=== PATIENT | female | born 1950 | race Caucasian/White ===

== ENCOUNTER 2024-10-23 14:13 | Emergency (ER) | payer OTHER, SELFPAY ==
[2024-10-23 14:15] VITALS: PULSE 40
[2024-10-23] MEDS: ETOMIDATE INJ 2 MG/ML VIAL 10 ML 20 MG IVP (14:23)
[2024-10-23] MEDS: ROCURONIUM INJ 10 MG/ML VIAL 10 ML 50 MG IVP (14:24)
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
--- NOTE | 2024-10-23 14:57 | PD.RESPROC ---
Procedures Procedure Date / Time 10/23/24 1440 Procedure Narrative Procedure Narrative: Attending attestation: Patient remains supine during ACLS for cardiac arrest. Diminished breath sounds on right. Empiric chest tube placement by resident under my direct supervision. We did place an trial safety in the lateral position at the midaxillary line at the fifth intercostal space. Bloody output noted. No immediate complications directly related to procedure. Percutaneous Chest Tube Indication(s): other (sudden decrease of breath sounds and resistance on bagging during ACLS) Informed consent obtained: procedure done urgently Time out done and verified the following: correct patient, side and site, procedure, patient position and implants and/or equipment Site cleansed with: Chlorhexidine Site: right and axillary Anesthetic used: none Catheter sized used: 16 F Seldinger technique used: yes Chest tube connected to evacuation container: no CXR ordered post procedure: no EBL(ml): 20 Complications/Comments: After insertion of chest tube dark red blood started pooling from catheter, estimated 20cc and was closed due to termination of CPR. Procedure was performed under supervision of ICU attending Dr. Ortiz. Aram Garcia MD, PGY 2. Disclaimer: This note was dictated by speech recognition. Minor errors in information resources director may be present due to voice recognition software.
--- NOTE | 2024-10-23 15:32 | PD.RESPROC ---
Procedures Procedure Date / Time 10/23/24 3771 Intubation Indication(s): acute Resp Failure and inability to protect airway Informed consent obtained: implied and procedure done urgently Time out done, and the following verified: correct patient, side and site, procedure, patient position and implants and/or equipment Sedative: etomidate Mg given: 20 Paralytic: rocuronium Mg given: 50 Laryngoscope: fiber optic video scope Assist device used: fiber optic device ET tube size: 7.5 ET tube uncuffed: Yes Tube secured depth (cm): 20 Tube secured location: teeth Tube placement confirmation: visualized tube passing through cords, equal breath sounds bilaterally, no breath sounds over epigastrium and confirmation by capnometry Patient tolerated procedure: well and no complications EBL(ml): 0 Intubation complications: none Additional comments: Procedure done under the guidance of Dr. Joyce Hicks, PGY1
--- NOTE | 2024-10-23 16:00 | PD.INTPROC ---
Procedures Procedure Date / Time 10/23/24 1600 Central Line Placement Right Femoral: Indication(s): shock (Cardiac arrest) Informed consent obtained: procedure done urgently Patient placed on monitor/pulse ox: Yes Hand Hygiene: scrub Central line prep: Chlorhexidine scrub Ultrasound used for placement: No Sterile Technique if Ultrasound used, including sterile gel: n/a (Emergent access for cardiac arrest) Central line lumen inserted: triple Post procedure: all ports aspirated, flushed, capped and sterile dressing applied Post procedure x-ray: other (Not applicable) Patient tolerated procedure: no complications EBL(ml): 5 Complications: none
--- NOTE | 2024-10-23 16:25 | PC.NURSE ---
PATIENT BIBA FROM HOME DUE TO ALOC WITH BRADYCARDIA. UPON ARRIVAL PATIENT HAD AGONAL BREATHING AT WHICH POINT EMS ASSISTED BREATHING TO PATIENT WITH BVM. PATIENT'S HEART THEN STOPPED WITH CPR BEGINNING AT 1416 AND ENDING AT AT 1450 WHEN TOD WAS CALLED. [facility] CONTACT[facility] WHO DECLINED PATIENT. [facility] SELECTED BY PATIENT'S . DONOR NETWORK CONTACTED AND GIVEN OPA# [phone] BY PENG WHO STATED THEY WILL TAKE PATIENT AND WILL CALL BACK.
--- NOTE | 2024-10-23 18:02 | PC.CM ---
Pt Rufina Aparicio is a 74 yr old female to ED as a STAT call from home. Upon arrival to ED pt being bagged by medic team. [employer] called. 1442-OPTIMIZATION MANAGER CC spoke with family member listed on pts face sheet Abraham Parra [phone].Mr. Parra identifies himself as pts , stating they have been for many years. Per Mr. Parra he has been staying with Ms. Aparicio, since 10/21/24, after pt was reporting arm and chest pain. Mr. Parra stated that he attempted to get pt to seek medical attention and pt refused. Per Mr. Parra couple have a son who lives in [place]. At this cristóbal call transferred to Dr. Cook. Pt TOD called at 1450. 1456-embedded systems software engineer inquired if OPTIMIZATION MANAGER CC can make contact with [facility] to inquire if pts body will be collected. OPTIMIZATION MANAGER CC spoke with [facility] who stated pts remains can be discharged to [facility] of choice. 1601-OPTIMIZATION MANAGER CC spoke with Mr. Parra, who states pts remains can be D/c to [facility]. Mr. Parra inquiring if he is able to collect pts belongings. OPTIMIZATION MANAGER CC informed Mr. Parra he is able to come to the ED any time before 1930 and OPTIMIZATION MANAGER CC would provided him with pts belongings. Mr. Parra arrived to ED and pts belongings provided to him at this time. Belongings included pts black wallet, and pts bag of home medications. Mr. Parra escorted to bedside. OPTIMIZATION MANAGER CC will remain available as needed for pt care and staff support.
== END 2024-10-23 18:30 | disposition expired ==
PROVIDERS: PCP Internal Medicine
DX: I46.9 Cardiac arrest, cause unspecified (principal)
CPT/HCPCS: 36556; 31500; 92950; 99285; C1729; J3490